=== PATIENT | female | born 2000 | race Caucasian/White ===

== ENCOUNTER 2024-05-26 08:13 | Inpatient (IN) ==
--- NOTE | 2024-05-25 21:39 | History & Physical Report ---
Date of Service May 25, 2024 Assessment & Plan (1) 39 weeks gestation of : (2) Breech presentation: Plan admit for planned c/s. labs, iv, abx octor. consent reviewed and signed. preop, postop instructions and course reviewed. History of Present Illness Chief Complaint: breech presentation. Primary Care Provider: NO PCP 23yo at 39+wks for planned admission on 05/26/24 for section due to persistent breech presentation. ECV attempted earlier this week but unsuccessful. Denies rom, vb. +FM. PNC c/b 1. breech presentation 2. LGSIL pap 03/2023, repeat pp PNL rhpos, ri, gbs neg OBH: g1 GYNH: lgsil see above, no stds Allergies Allergy/AdvReac Type Severity Reaction Status Date / Time No Known Allergies Allergy Verified 05/25/24 14:36 Home Medications Medication Instructions Recorded Confirmed Type vitamin with calcium 1 tab PO DAILY 03/23/24 05/25/24 History no.72-iron 27 mg-folic acid 1 mg tablet (WesTab Plus) Patient History Medical History No known health problems Surgical History S/P wisdom tooth extraction Family History Grandmother Colorectal cancer Other No family history of adverse response to anesthesia Social History Smoking Status: Never smoker Second Hand Exposure: No; Do You Dip or Chew Tobacco: No; Hx Alcohol Use: No Hx Substance Use: No Preferred Language: Portuguese Communication Ability: Effective Product Safety Manager Required: No Beliefs That Will Affect Care: None marital status: marital status details: [place] (23) [phone] Current Living Situation: Spouse and Family current occupational status: unemployed Feels Safe at Home: Yes Assistive Devices: Glasses Review of Systems as per Subjective / HPI Physical Exam Constitutional: WD/WN, vitals as above Gastrointestinal (Abdomen): soft gravid nt +fhts Musculoskeletal: tr edema nontender calves Neurologic: grossly normal Psychiatric: A+Ox3, euthymic affect Genitourinary: OB Exam Abdomen: + breech (by u/s) Coding Level of Care Code None Diagnoses 39 weeks gestation of Z3A.39 Breech presentation, single or unspecified fetus O32.1XX0 Fetus number: single or unspecified fetus (2) Breech presentation Fetus number: single or unspecified fetus Qualified Code(s): O32.1XX0 - Maternal care for breech presentation, not applicable or unspecified
[2024-05-26 10:00] LABS: Hematocrit (blood only) 37.9 % (37.0-47.0); Mean Corpuscular Hgb Conc 34.3 g/dL (32.0-36.0); Mean Corpuscular Volume 90.5 fL (80.0-100.0); Mean Platelet Volume 11.6 fL (9.4-12.4); Platelet Count 263 K/uL (130-400); RDW Coefficient of Variation 12.9 % (11.5-14.5); RDW Standard Deviation 41.9 fL (36.4-46.3); Red Blood Count 4.19 M/uL (4.20-5.40); White Blood Count 12.84 K/ul (4.8-10.8)
[2024-05-26] MEDS ORDERED: SODIUM CHLORIDE 0.9% 1,000 ML IV SCH ×2 (10:30→15:45)
[2024-05-26] MEDS: SODIUM CHLORIDE 0.9% 1,000 ML IV SCH (12:57)
[2024-05-26] MEDS: ACETAMINOPHEN 500 MG TAB PO SCH (12:59)
[2024-05-26] MEDS ORDERED: Nursing to Pharmacy Communication SCH (13:15)
[2024-05-26] MEDS ORDERED: PHENYLEPHRINE HCL 25 MG/250 ML NSS IV ONE (14:25)
[2024-05-26] MEDS ORDERED: MoRPHine SULFATE PF 1 MG/ML 10 ML AMP/VIAL ONE (14:27)
[2024-05-26] MEDS: CITRIC ACID/SODIUM CITRATE 15 ML UDC PO SCH (14:32)
[2024-05-26] MEDS: ceFAZolin 2000MG 2,000 MG/15 ML SYR IV SCH (14:32)
[2024-05-26] MEDS: CITRIC ACID/SODIUM CITRATE 15 ML UDC ONE (14:33)
[2024-05-26] MEDS ORDERED: METOCLOPRAMIDE HCL 10 MG in SODIUM CHLORIDE 0.9% 50 ML IV PRN (14:36)
[2024-05-26] MEDS ORDERED: NALOXONE HCL 1 MG in SODIUM CHLORIDE 0.9% 1,000 ML IV PRN (14:36)
[2024-05-26] MEDS ORDERED: NALOXONE HCL 0.08 MG in SYRINGE 1.8 ML IV PRN (14:36)
[2024-05-26] MEDS ORDERED: NALBUPHINE HCL INJ 10 MG/ML AMP IV PRN (14:36)
[2024-05-26] MEDS ORDERED: NALOXONE HCL 0.4 MG/1 ML VIAL/CARP IV PRN (14:36)
[2024-05-26] MEDS ORDERED: MoRPHine SULFATE PF 1 MG/ML 10 ML AMP/VIAL INT SPINAL ONE (14:36)
[2024-05-26] MEDS ORDERED: PROMETHAZINE 6.25 MG/50.25 ML BAG IV PRN (14:36)
[2024-05-26] MEDS ORDERED: ePHEDrine sulfate 50 MG/ML AMP IV PRN (14:36)
[2024-05-26] MEDS ORDERED: MoRPHine SULFATE 2 MG/ML CARP IV PRN (14:36)
[2024-05-26] MEDS ORDERED: oxyCODONE HCL IR 5 MG TAB (IMMEDIATE RELEASE) PO PRN (14:36)
[2024-05-26] MEDS ORDERED: KETOROLAC 30 MG/ML VIAL IV PRN (14:36)
[2024-05-26] MEDS ORDERED: MEPERIDINE HCL 25 MG/ML CARP/VIAL IV PRN (14:36)
[2024-05-26] MEDS ORDERED: HYDROmorphone INJ 0.5 MG/0.5 ML SYR IV PRN (14:36)
[2024-05-26] MEDS ORDERED: ONDANSETRON INJ 2 MG/ML 2 ML VIAL IV PRN (14:36)
[2024-05-26] MEDS ORDERED: NO NARCOTICS OR SEDATIVES SCH (14:45)
[2024-05-26] MEDS ORDERED: ONDANSETRON INJ 2 MG/ML 2 ML VIAL ONE (15:13)
[2024-05-26] MEDS ORDERED: OXYTOCIN 10 UNITS/ML VIAL ONE (15:15)
[2024-05-26] MEDS ORDERED: PHENYLEPHRINE 100MCG/ML 5ML SYR ONE (15:15)
[2024-05-26] MEDS ORDERED: DEXAMETHASONE SOD INJ 4 MG/ML VIAL ONE (15:15)
[2024-05-26] MEDS ORDERED: BENZOCAINE 20% SPRY 85 APPLN/85 GM CAN EXT PRN (15:40)
[2024-05-26] MEDS ORDERED: MAGNESIUM HYDROXIDE SUSP 30 ML UDC PO PRN (15:40)
[2024-05-26] MEDS ORDERED: HYDROCORTISONE ACETATE 25 MG SUPP PR PRN (15:40)
[2024-05-26] MEDS ORDERED: SENNA 8.6 MG TAB PO PRN (15:40)
[2024-05-26] MEDS ORDERED: CALCIUM CARBONATE 500 MG CHEWABLE TAB PO PRN (15:40)
--- NOTE | 2024-05-26 15:41 | Operative Report ---
Post Operative Report Pre & Post Diagnosis Operation Date: 05/26/24 10:10 Pre-Op Diagnosis: Primary section (breech) with bilateral salpingectomy Post-Op Diagnosis: same I identified the patient and participated in the time-out.: Yes Procedure Operation Date: 05/26/24 10:10 Actual Procedures p Section in LD for living male child at 1509(Bilateral) - Darline Heredia MD, FACOG Surgeon Darline Heredia MD, FACOG Plate Washer Resident Quantitative Blood Loss (QBL) 350 Findings Consistent with Post-Op Diagnosis Specimens Cord blood and bilateral tubes Description of Procedure Clinical note patient been scheduled for section and tubal ligation specifically salpingectomy with Dr. Pozo due to busyness on the service I was asked to perform the as Dr. Pozo was otherwise engaged with surgery and I agree this will be the most timely thing for the patient I did reviewed with the patient that she wanted a tubal at age 23 and she was certain of this I did discuss the issue of regret consent was signed Regional anesthetic had been given by anesthesia patient was prepped and draped with a leftward tilt preoperative antibiotics had been given in appropriate timing by anesthesiology. Once the prep was allowed to fully dry timeout was performed. Pickups with teeth were used to test the incision area was found to be adequate for incision as the patient did not feel sharp pain. Scalpel was used to make a Pfannenstiel incision on the lower abdomen. We then cut through the subcutaneous fat down to the level of the anterior rectus sheath fascia this was cut in the midline and then extended laterally with the curved Oliver scissors. At this stage we then placed 2 Cassidy clamps on the anterior aspect of the fascia. Using the curved Oliver's we are able to dissect the fascia superiorly away from the rectus muscles. Care was taken to maintain hemostasis. Cassidy clamps were then placed to the inferior aspect of the anterior sheath of the fascia. Fascia was then dissected away from the rectus muscles inferiorly towards the pubic bone. A Cassidy was then placed in the midline both inferiorly and superiorly. This was to allow exposure by retraction rectus muscles were in the midline with were then able to cut through the peritoneum and then enter the peritoneal cavity. Opening was enlarged to allow exposure of the peritoneal cavity both superiorly and inferiorly. Once adequate space was obtained a bladder retractor was placed to expose the lower segment Metzenbaums were used to dissect the bladder flap inferiorly away from the uterus. This was done sharply bladder retractor was then repositioned to expose the lower segment of the uterus Fresh scalpel was used to make a low transverse incision on the uterus. Uterus was then entered bluntly with the operators finger, membranes ruptured and the opening was enlarged using the operators fingers bluntly pulling superiorly and inferiorly to allow exposure. Baby was delivered first by flexing the breech and elevating with the hand combined with the assistance abdominal pressure the buttocks were delivered as the baby was simon breech turning the back anterior and then gentle traction on the baby and then arms were released towards the chest and then head was easily delivered without excessive extension live vigorous male infant. Fluid was thin meconium cord clamped and cut cord gases obtained cord blood obtained baby handed to pediatrics. Placenta removed was removed with traction we ensure the entire placenta was removed with a moist lap sponge into the uterus Uterus was then exteriorized. IV Pitocin had been started by anesthesia tone improved there were no extensions the uterus was then closed using 0 Monocryl in a 2 layer closure the first layer closed in a running locked fashion from left to right and then a second closure from left to right in a running nonlocked fashion. At this stage hemostasis was excellent. I confirmed with the patient again she wishes to proceed with tubal the right fallopian tube was grasped with a [place] using the LigaSure I carefully coagula rolando and cut the fallopian tube attachments and vessels to the mesosalpinx this was continued along until the fallopian tube and at the uterus where the fallopian tube was then transected with the LigaSure specimen sent to pathology the exact same process repeated on the right that should be noted when the uterus was placed back in the peritoneal cavity but hemostasis was inspected at the tubal sites and was satisfactory Uterus was placed back in the peritoneal cavity with suction irrigation out and inspection of the uterus at this stage revealed excellent hemostasis Retractors were removed urine color was clear at this stage of the case we inspected the rectus muscles they were hemostatic fascia was closed with 0 Vicryl subcutaneous fat was irrigated and closed with 3-0 Vicryl skin closed with 4-0 subcuticular Monocryl Should be noted the uterus and adnexa were normal and urine was clear at the end the procedure I attest to the content of the Intraoperative Record and any orders documented therein. Any exceptions are noted below. OB Procedure Charges [id number] Add on Tubal for C/S
[2024-05-26] MEDS: KETOROLAC 30 MG/ML VIAL IV SCH (15:57)
--- NOTE | 2024-05-26 15:57 | Anesthesiology Progress Note ---
Date of Service May 26, 2024 Anesthesia Post Procedure Vital Signs Vital Signs: Temp Pulse Resp BP Pulse Ox 05/26/24 15:53 81 96 05/26/24 15:50 74 94 05/26/24 15:48 72 96 05/26/24 15:44 78 94 05/26/24 15:43 80 129/56 L 95 05/26/24 09:31 37.1 C 16 05/26/24 08:51 94 H 135/76 Transfer of Care Handoff Completed per policy Notes Mental Status: alert / awake / arousable and participated in evaluation Patient Amnestic to Procedure: No Nausea / Vomiting: adequately controlled Pain: adequately controlled Airway Patency, RR, SpO2: stable & adequate BP & HR: stable & adequate Hydration State: stable & adequate Neuraxial Anesthesia: was administered and sensory block is resolving Anesthetic Complications: no major complications apparent and Pt Satisfied with anesthetic care
[2024-05-26] MEDS: diphenhydrAMINE 50 MG/ML VIAL IV PRN (17:22)
[2024-05-26] MEDS: SIMETHICONE 80 MG CHEW PO SCH (19:54)
[2024-05-26] MEDS: DIPHTHER/TETAN/PERTUS Vaccine (Tdap, Adol/Adult) 0.5mL IM ONE (21:33)
[2024-05-26] MEDS: DOCUSATE SODIUM 100 MG CAP PO SCH (21:34)
[2024-05-26] MEDS: ACETAMINOPHEN 325 MG TAB PO SCH (22:04)
--- NOTE | 2024-05-27 05:37 | Obstetrical Progress Note ---
Date of Service May 27, 2024 Assessment & Plan (1) Encounter for care and examination after delivery: Plan stable, routine care. labs pending for this am. plan to dc dressing later today, can do so in shower. eating, voiding, ambulating. good pain control. breast feeding. rhpos. ri. Day #:: 1 Subjective Ambulation: ambulating normally Voiding: no voiding problems Passing Gas:: Yes Diet Tolerance:: regular diet Lochia:: Small Feeding Type:: breast feeding denies pain issues Constitutional: + as per Subjective / HPI Physical Exam Constitutional WD/WN, vitals as above Respiratory normal respiratory effort, lungs clear to auscultation Cardiovascular Rate/Rhythm: regular rate and regular rhythm Gastrointestinal (Abdomen) Inspection/Auscultation: abdomen normal to inspection Percussion/Palpation: abdomen soft Fundus firm 1cm down dressing c/d/i Musculoskeletal nt calves tr edema Neurologic grossly normal Psychiatric A+Ox3, euthymic affect Results & Data Vital Signs (Past 12 Hours) Vital Signs Temp Pulse Pulse Resp BP BP Pulse Ox 05/27/24 04:15 18 97 05/27/24 04:05 99.0 F 76 16 113/68 97 05/27/24 03:15 16 96 05/27/24 02:46 16 98 05/27/24 01:05 16 95 05/27/24 00:10 16 96 05/26/24 23:10 99.1 F 84 16 136/83 96 05/26/24 23:10 18 96 05/26/24 23:10 05/26/24 21:55 20 99 05/26/24 20:55 20 98 05/26/24 19:55 20 98 05/26/24 18:55 20 98 05/26/24 18:48 111 H 97 05/26/24 18:43 112 H 95 05/26/24 18:38 86 95 05/26/24 18:33 98 H 96 05/26/24 18:28 80 94 05/26/24 18:23 88 95 05/26/24 18:18 94 H 95 05/26/24 18:13 94 H 96 05/26/24 18:08 103 H 95 05/26/24 18:04 85 130/60 05/26/24 18:03 94 H 96 05/26/24 17:58 93 H 96 05/26/24 17:54 87 132/61 05/26/24 17:53 90 96 05/26/24 17:48 94 H 96 05/26/24 17:45 89 129/62 05/26/24 17:43 92 H 96 05/26/24 17:38 96 H 96 O2 Del Method 05/27/24 04:15 05/27/24 04:05 Room Air 05/27/24 03:15 05/27/24 02:46 05/27/24 01:05 05/27/24 00:10 05/26/24 23:10 Room Air 05/26/24 23:10 05/26/24 23:10 Room Air 05/26/24 21:55 05/26/24 20:55 05/26/24 19:55 05/26/24 18:55 05/26/24 18:48 05/26/24 18:43 05/26/24 18:38 05/26/24 18:33 05/26/24 18:28 05/26/24 18:23 05/26/24 18:18 05/26/24 18:13 05/26/24 18:08 05/26/24 18:04 05/26/24 18:03 05/26/24 17:58 05/26/24 17:54 05/26/24 17:53 05/26/24 17:48 05/26/24 17:45 05/26/24 17:43 05/26/24 17:38
[2024-05-27] MEDS ORDERED: ceFAZolin 2000MG 2,000 MG/15 ML SYR IV SCH (06:00)
[2024-05-27] MEDS ORDERED: CITRIC ACID/SODIUM CITRATE 15 ML UDC PO SCH (06:00)
[2024-05-27] MEDS ORDERED: ACETAMINOPHEN 500 MG TAB PO SCH (06:00)
[2024-05-27 06:33] LABS: Basophils # (auto) 0.02 K/uL (0.00-0.20); Basophils % (auto) 0.1 %; Eosinophils # (auto) 0.02 K/uL (0.00-0.50); Eosinophils % (auto) 0.1 %; Hematocrit (blood only) 31.7 % (37.0-47.0); Hemoglobin 10.8 g/dl (12.0-16.0); Immature Granulocytes # (auto) 0.09 K/uL (0.01-0.20); Immature Granulocytes % (auto) 0.5 %; Lymphocytes # (auto) 2.08 K/uL (1.20-3.40); Lymphocytes % (auto) 12.3 %; Mean Corpuscular Hgb Conc 34.1 g/dL (32.0-36.0); Mean Corpuscular Volume 91.1 fL (80.0-100.0); Mean Platelet Volume 11.7 fL (9.4-12.4); Monocytes # (auto) 0.95 K/uL (0.11-0.59); Monocytes % (auto) 5.6 %; Neutrophils # (auto) 13.78 K/uL (1.40-6.50); Neutrophils % (auto) 81.4 %; Platelet Count 234 K/uL (130-400); RDW Coefficient of Variation 12.9 % (11.5-14.5); RDW Standard Deviation 42.1 fL (36.4-46.3); Red Blood Count 3.48 M/uL (4.20-5.40); White Blood Count 16.94 K/ul (4.8-10.8)
[2024-05-27] MEDS ORDERED: diphenhydrAMINE Capsule 25 MG CAP PO PRN (08:36)
[2024-05-27] MEDS ORDERED: diphenhydrAMINE 50 MG/ML VIAL IV PRN (08:36)
[2024-05-27] MEDS ORDERED: DC INTRASPINAL MORPHINE ONE (08:36)
[2024-05-27] MEDS ORDERED: oxyCODONE HCL IR 5 MG TAB (IMMEDIATE RELEASE) PO PRN (08:37)
[2024-05-27] MEDS ORDERED: ONDANSETRON INJ 2 MG/ML 2 ML VIAL IV PRN (08:37)
[2024-05-27] MEDS ORDERED: PROMETHAZINE 12.5 MG/50.5 ML BAG IV PRN (08:37)
[2024-05-27] MEDS ORDERED: HYDROmorphone INJ 0.5 MG/0.5 ML SYR IV PRN (08:37)
[2024-05-27] MEDS: FERROUS SULFATE 325 MG TAB PO SCH (10:08)
[2024-05-27] MEDS: PRENATAL VITAMIN 1 TAB PO SCH (10:08)
[2024-05-27] MEDS ORDERED: KETOROLAC 30 MG/ML VIAL IV PRN (15:40)
[2024-05-27] MEDS: IBUPROFEN 600 MG TAB PO SCH (16:53)
[2024-05-27] MEDS: bisacodyL 5 MG TABEC PO SCH (20:10)
[2024-05-27 22:10] VITALS: RESP 18; TEMP 97.7
[2024-05-28 00:38] VITALS: BP 118/75; PULSE 87; O2SAT 94
[2024-05-28 07:10] LABS: Hematocrit (blood only) 28.9 % (37.0-47.0); Hemoglobin 9.7 g/dl (12.0-16.0)
--- NOTE | 2024-05-28 09:05 | Obstetrical Progress Note ---
Date of Service May 28, 2024 Assessment & Plan (1) Encounter for care and examination after delivery: Postoperative from section patient meets discharge criteria as she is ambulating well tolerating an oral diet has minimal bleeding and no extremity pain. Discharge instructions were reviewed and prescriptions were sent to her pharmacy of choice patient advised to call with any concerns and follow-up in the office discussed Subjective Ambulation: ambulating normally Voiding: no voiding problems Passing Gas:: Yes Diet Tolerance:: regular diet Lochia:: Small Physical Exam Constitutional WD/WN, vitals as above well developed and well nourished Respiratory normal respiratory effort, lungs clear to auscultation normal respiratory effort Cardiovascular RRR, no murmur, no edema Gastrointestinal (Abdomen) normal bowel sounds, soft, nontender, no hepatosplenomegaly Results & Data Vital Signs (Past 12 Hours) Vital Signs Temp Pulse Resp BP Pulse Ox O2 Del Method 05/28/24 00:05 97.7 F 87 18 118/75 94 Room Air
[2024-05-28] MEDS ORDERED: IBUPROFEN 600 MG TAB PO PRN (15:40)
[2024-05-28] MEDS ORDERED: bisacodyL 10 MG SUPP PR PRN (15:40)
[2024-05-28] MEDS ORDERED: ACETAMINOPHEN 325 MG TAB PO PRN (21:40)
== END 2024-05-28 11:40 | disposition home or self-care (01) | DRG 785 ==
LOC: 4S1 08:13 → EDSTATUS 10:10 → 4E2 19:48